=== PATIENT | male | born 1960 | race Caucasian/White ===

== ENCOUNTER → 2016-09-02 | Outpatient (CLI) | payer MEDICARE ==
[~2016-09-02] MED LIST: BENA25CA2 PO; DOCU10CA PO; PERC5TAB6 PO; TYLE325T5 PO; [UNRECOGNIZED DRUG - REMARK]
[2016-09-02 13:27] LABS: MEAN CORPUSCULAR HEMOGLOBIN 29.9 pg (27.0-33.0); MEAN CORPUSCULAR HGB CONC 31.9 g/dl (32.0-36.5); MEAN CORPUSCULAR VOLUME 93.8 fl (80.0-96.0); RED CELL DISTRIBUTION WIDTH 12.7 % (11.5-14.5); WHITE BLOOD COUNT 6.6 K/mm3 (4.0-10.0)
[2016-09-02 14:12] LABS: ANION GAP 7 MEQ/L (8-16); BLOOD UREA NITROGEN 26 MG/DL (7-18); CALCIUM LEVEL 9.4 MG/DL (8.5-10.1); CARBON DIOXIDE LEVEL 30 MEQ/L (21-32); CHLORIDE LEVEL 103 MEQ/L (98-107); GLOMERULAR FILTRATION RATE > 60.0 (>56); GLUCOSE, FASTING 102 MG/DL (70-105); POTASSIUM SERUM 5.1 MEQ/L (3.5-5.1); SODIUM LEVEL 140 MEQ/L (136-145)
== END ==
LOC: M SMT 08:56
PROVIDERS: ATTEND Urology
DX: Z85.528 Personal history of other malignant neoplasm of kidney (principal); Z90.5 Acquired absence of kidney

== ENCOUNTER → 2016-09-09 | Outpatient (CLI) | payer MEDICARE ==
[~2016-09-09] MED LIST changes: +ISOVUE-370 76% 100ML VIAL (Q9967) As Ordered ONE
--- NOTE | 2016-09-09 15:17 | REP ---
REASON: History of malignant renal neoplasm. COMPARISON: 02/18/2015 CONTRAST UTILIZED: 100 mL Isovue-370. The lung bases are unchanged. There are no pleural or pericardial effusions. The precontrast enhanced portion of the exam shows hepatic and splenic densities to be within normal limits. There are no choleliths or nephroliths. Surgical clips are seen in the left renal fossa from previous left nephrectomy. The contrast-enhanced portion of the examination shows two tiny enhancing areas, one in the lateral segment of the left lobe and the other in the anterior segment of the right lobe of the liver, but only on the angiographic phase of hepatic imaging and not present on the prior exam, however, injection timing was different with more arterial phase timing on today's exam. The delayed images of the liver show no evidence of an abnormality in those two regions. The small area of enhancement seen involving the lateral segment of the left lobe of the liver near the hepatic edge is again noted and is unchanged. The gallbladder, spleen, pancreas, adrenal glands, and right kidney are unchanged remaining within normal limits. The abdominal aorta and para-aortic regions are unchanged remaining within normal limits. Although not opacified with oral bowel preparatory contrast administration, the bowel loops and their mesenteries appear to be within normal limits. There is no evidence of an intra-abdominal mass or adenopathy. Bone window technique throughout the exam shows no significant change in appearance of the osseous structures. There are spinal degenerative changes and there are lumbar discogenic changes, all of which appear stable. IMPRESSION: 1. Postoperative changes, as described above. There is no evidence of recurrent disease. 2. Changes involving the liver, as described above. These two tiny areas of enhancement likely represent small vascular anomalies. There is no evidence of hepatic metastatic disease. 3. Other findings, as described above. Signed by Michel Rojas DO 09/09/2016 04:47 P
== END ==
LOC: M RAD 12:55
PROVIDERS: ATTEND Urology
DX: Z85.528 Personal history of other malignant neoplasm of kidney (principal); R93.2 Abnormal findings on diagnostic imaging of liver and biliary tract
CPT/HCPCS: 74170; Q9967

== ENCOUNTER → 2016-09-19 | Outpatient (REF) | payer MEDICARE ==
[~2016-09-19] MED LIST changes: -ISOVUE-370 76% 100ML VIAL (Q9967) As Ordered ONE
== END ==
LOC: M LAB REF 17:09
PROVIDERS: ATTEND Physician Assistant
DX: N41.0 Acute prostatitis (principal)

== ENCOUNTER → 2016-09-30 | Emergency (ER) | payer MEDICARE ==
[~2016-09-30] VITALS: Ht 180.3 cm; Wt 72.6 kg
[2016-09-30 08:53] VITALS: BP 129/86
== END | disposition left against medical advice (07) ==
LOC: M ED 09:53
DX: K08.89 Other specified disorders of teeth and supporting structures (principal); Z53.21 Procedure and treatment not carried out due to patient leaving prior to being seen by health care provider

== ENCOUNTER → 2017-11-23 | Outpatient (CLI) | payer MEDICARE ==
[2017-11-23 20:33] LABS: ANION GAP 7 MEQ/L (8-16); BLOOD UREA NITROGEN 34 MG/DL (7-18); CALCIUM LEVEL 9.3 MG/DL (8.5-10.1); CARBON DIOXIDE LEVEL 31 MEQ/L (21-32); CHLORIDE LEVEL 107 MEQ/L (98-107); CREATININE FOR GFR 1.22 MG/DL (0.70-1.30); GLOMERULAR FILTRATION RATE > 60.0 (>56); GLUCOSE, FASTING 82 MG/DL (70-100); SODIUM LEVEL 145 MEQ/L (136-145)
[2017-11-23 20:35] LABS: HEMATOCRIT 40.4 % (42.0-52.0); HEMOGLOBIN 13.3 g/dl (13.5-17.5); MEAN CORPUSCULAR HEMOGLOBIN 30.3 pg (27.0-33.0); MEAN CORPUSCULAR HGB CONC 32.9 g/dl (32.0-36.5); PLATELET COUNT, AUTOMATED 257 10^3/uL (150-450); POTASSIUM SERUM 5.8 MEQ/L (3.5-5.1); RED BLOOD COUNT 4.39 10^6/uL (4.30-6.10); RED CELL DISTRIBUTION WIDTH 13.2 % (11.5-14.5); WHITE BLOOD COUNT 9.2 10^3/uL (4.0-10.0)
== END ==
LOC: M WUC 15:53
DX: Z90.5 Acquired absence of kidney (principal); Z85.528 Personal history of other malignant neoplasm of kidney
CPT/HCPCS: 80048

== ENCOUNTER → 2017-11-29 | Outpatient (CLI) | payer MEDICARE ==
[~2017-11-29] MED LIST changes: -BENA25CA2 PO; -DOCU10CA PO; +ISOVUE-370 76% 100ML VIAL (Q9967) As Ordered; -PERC5TAB6 PO; -TYLE325T5 PO; -[UNRECOGNIZED DRUG - REMARK]
== END ==
LOC: M RAD 12:51
DX: Z85.528 Personal history of other malignant neoplasm of kidney (principal); Z90.5 Acquired absence of kidney
CPT/HCPCS: Q9967

== ENCOUNTER 2020-03-12 09:01 | Emergency (ER) | payer MEDICARE ==
[~2020-03-12] VITALS: Ht 180.3 cm; Wt 74.3 kg
[~2020-03-12 09:01] MED LIST changes: +BENA25CA2 PO; +DOCU10CA PO; -ISOVUE-370 76% 100ML VIAL (Q9967) As Ordered; +PERC5TAB12 PO; +TYLE325T5 PO; +[UNRECOGNIZED DRUG - REMARK]
[2020-03-12 09:02] VITALS: BP 112/77
[2020-03-12] MEDS ORDERED: DOXY100C37 PO (09:42)
== END 2020-03-12 09:47 | disposition home or self-care (01) ==
LOC: M ED 09:01
DX: L03.114 Cellulitis of left upper limb (principal); F17.200 Nicotine dependence, unspecified, uncomplicated

== ENCOUNTER 2020-05-11 02:22 | Emergency (ER) | payer MEDICARE ==
[~2020-05-11] VITALS: Ht 177.8 cm; Wt 67.6 kg
[~2020-05-11 02:22] MED LIST changes: +DOXY100C37 PO
[2020-05-11] MEDS ORDERED: NS 1,000 ML IV ONE ×2 (02:45→04:15)
[2020-05-11 02:46] LABS: BASO % 0.2 % (0.0-1.0); EOS % 0.1 % (0.0-3.0); HEMATOCRIT 38.9 % (42.0-52.0); HEMOGLOBIN 12.4 g/dl (13.5-17.5); LYMPH # 1.5 10^3/uL (1.5-5.0); LYMPH % 11.3 % (24.0-44.0); MEAN CORPUSCULAR HEMOGLOBIN 28.4 pg (27.0-33.0); MEAN CORPUSCULAR HGB CONC 31.9 g/dl (32.0-36.5); MEAN CORPUSCULAR VOLUME 89.2 fl (80.0-96.0); MONO # 1.2 10^3/uL (0.0-0.8); NEUTROPHILS # 10.5 10^3/uL (1.5-8.5); NEUTROPHILS % 78.9 % (36.0-66.0); PLATELET COUNT, AUTOMATED 217 10^3/uL (150-450); RED BLOOD COUNT 4.36 10^6/uL (4.30-6.10); WHITE BLOOD COUNT 13.4 10^3/uL (4.0-10.0)
[2020-05-11] MEDS ORDERED: LORazepam 2 MG/ML VIAL IV STA (02:57)
[2020-05-11] MEDS ORDERED: LORazepam 2 MG/ML VIAL As Ordered ONE (03:00)
[2020-05-11 03:13] LABS: BLOOD UREA NITROGEN 25 MG/DL (7-18); CALCIUM LEVEL 8.8 MG/DL (8.5-10.1); CARBON DIOXIDE LEVEL 25 MEQ/L (21-32); CHLORIDE LEVEL 100 MEQ/L (98-107); CK-MB VALUE MASS 16.3 NG/ML (<3.6); CPK CREATINE PHOSPHOKINASE 759 U/L (39-308); ETHYL ALCOHOL (ETHANOL) 0.003 % (0.000-0.010); GLOMERULAR FILTRATION RATE > 60.0 (>56); GLUCOSE, FASTING 97 MG/DL (70-100); MB/CK RELATIVE INDEX 2.15 (< OR =4); NT-PRO BNP 502 PG/ML (<125); POTASSIUM SERUM 4.1 MEQ/L (3.5-5.1); SODIUM LEVEL 134 MEQ/L (136-145); TROPONIN I < 0.02 NG/ML (< 0.10)
[2020-05-11 03:21] LABS: AMPHETAMINES LEVEL URINE POSITIVE (NEGATIVE); BARBITURATES URINE NEGATIVE (NEGATIVE); BENZODIAZEPINES URINE NEGATIVE (NEGATIVE); CANNABINOIDS URINE POSITIVE (NEGATIVE); COCAINE METABOLITE URINE POSITIVE (NEGATIVE); METHADONE URINE NEGATIVE (NEGATIVE); OPIATES URINE NEGATIVE (NEGATIVE); PHENCYCLIDINE URINE NEGATIVE (NEGATIVE)
--- NOTE | 2020-05-11 05:53 | ECGEPIP ---
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
--- NOTE | 2020-05-11 07:08 | REPVR ---
PROCEDURE INFORMATION: Exam: XR Chest, 1 View Exam date and time: 05/11/2020 3:00 AM Age: 60 years old Clinical indication: Chest pain; Type not specified TECHNIQUE: Imaging protocol: XR of the chest Views: 1 view. COMPARISON: CR Chest, 2 view PA, Lat 11/29/2017 1:04 PM FINDINGS: Lungs: No consolidation. Pleural space: No pleural effusion. No pneumothorax. Heart/Mediastinum: No cardiomegaly. Bones/joints: There are degenerative changes of the thoracic spine. IMPRESSION: There is no evidence of active pulmonary disease. Electronically signed by: Emanuel Cotton On 05/11/2020 07:08:53 AM
[2020-05-11 08:59] LABS: CK-MB VALUE MASS 11.2 NG/ML (<3.6); CPK CREATINE PHOSPHOKINASE 491 U/L (39-308); MB/CK RELATIVE INDEX 2.28 (< OR =4); TROPONIN I < 0.02 NG/ML (< 0.10)
[2020-05-11 11:01] VITALS: BP 122/62
--- NOTE | 2020-05-12 06:32 | ECGEPIP ---
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
== END 2020-05-11 12:11 | disposition home or self-care (01) ==
LOC: M ED 02:22
DX: R07.9 Chest pain, unspecified (principal); R00.0 Tachycardia, unspecified; R06.02 Shortness of breath; F19.10 Other psychoactive substance abuse, uncomplicated; Z85.528 Personal history of other malignant neoplasm of kidney
CPT/HCPCS: 71045; 80048; 80307; 82550; 82553; 83880; 84484; 85025; 93005; 93041; 94760; 96361; 96374; 99285; G0480; J2060; U0003

== ENCOUNTER 2020-07-02 11:57 | Emergency (ER) | payer MEDICARE ==
[~2020-07-02] VITALS: Ht 177.8 cm; Wt 69.1 kg
--- OUTSIDE RECORDS SUMMARY | 2020-07-02 12:03 | CCD ---
Author Author [facility] Organization [facility] Address Unknown Phone Unavailable Support Name Relationship Address Phone RYLAN PADILLA [place] [address] DELTA JOSEPH Next Of Kin [address] [place] [address] D Next Of Kin Unknown Unavailable ROEL RYLAN Next Of Kin , [place] SOM JOSEPH Next Of Kin [address] [facility] [address] [place] [id number] DISABLED Next Of Kin Unknown Unavailable SHUKRI JOSEPHY Next Of Kin [address] [place] [address] [place] Next Of Kin [address] [place], [place] [id number] Re-disclosure Warning The records that you are about to access may contain information from federally-assisted alcohol or drug abuse programs. If such information is present, then the following federally mandated warning applies: This information has been disclosed to you from records protected by federal confidentiality rules (42 CFR part 2). The federal rules prohibit you from making any further disclosure of this information unless further disclosure is expressly permitted by the written consent of the person to whom it pertains or as otherwise permitted by 42 CFR part 2. A general authorization for the release of medical or other information is NOT sufficient for this purpose. The Federal rules restrict any use of the information to criminally investigate or prosecute any alcohol or drug abuse patient.The records that you are about to access may contain highly sensitive health information, the redisclosure of which is protected by Article 27-F of the [facility] Public Health law. If you continue you may have access to information: Regarding HIV / AIDS; Provided by facilities licensed or operated by the [facility] Office of Mental Health; or Provided by the [facility] Office for People With Developmental Disabilities. If such information is present, then the following [facility] mandated warning applies: This information has been disclosed to you from confidential records which are protected by state law. State law prohibits you from making any further disclosure of this information without the specific written consent of the person to whom it pertains, or as otherwise permitted by law. Any unauthorized further disclosure in violation of state law may result in a fine or longterm sentence or both. A general authorization for the release of medical or other information is NOT sufficient authorization for further disc losure. Family History Family Member Name Family Member Gender Family Member Status Date o f Status Description Data Source(s) Unknown Male Problem MEDENT ([facility]) Medications Medication Brand Name Start Date Product Form Dose Route Admi nistrative Instructions Pharmacy Instructions Status Indications Reaction Description Data Source(s) 100 mg 03/12/2020 12:00:00 AM EDT capsule 20 TAKE ONE CAPSULE BY MOUTH EVERY 12 HOURS TAKE ONE CAPSULE BY MOUTH EVERY 12 HOURS SOLD: 03/12/2020 [facility] Insurance Providers Payer name Policy type / Coverage type Policy ID Covered republican ID Covered republican's relationship to mckeon Policy [place] Plan Information MEDICARE [id number] SP [id number] P34 MEDICARE C [id number] S [id number] P34 MEDICARE [id number] SP [id number] A MEDICARE [id number] SP [id number] A Medicare [facility] Medicare Primary [id number] Self [id number] [place] [id number] Self [id number] MEDICARE PART A-O/P [id number] 18 [id number] MC-PT A [id number] S [id number] A Medicare [facility] Medicare Primary Self MEDICARE [id number] SP [id number] A [id number] A Results ID Date Data Source [id number] 05/11/2020 12:03:00 PM EST [facility] Name Value Range Interpretation Code Description Data Miryam rce(s) Supporting Document(s) SARS coronavirus 2 RNA [facility] This lab was ordered by [facility] and reported by [facility]. Procedure
--- OUTSIDE RECORDS SUMMARY | 2020-07-02 12:31 | CCD ---
Author Author [facility] Organization [facility] Address Unknown Phone Unavailable Support Name Relationship Address Phone RYLAN PADILLA Next Of Kin [address] [place] [phone] DELTA JOSEPH Next Of Kin [address] [place] [address] D Next Of Kin Unknown Unavailable ROEL RYLAN Next Of Kin , [place] SOM JOSEPH Next Of Kin [address] [facility] [address] [place] [address] DISABLED Next Of Kin Unknown Unavailable KRISTIAN JOSEPH Next Of Kin [address] [place] [address] [place] JOSEPH Next Of Kin [address] [place] [address] Re-disclosure Warning The records that you are [...] is protected by Article 27-F of the [facility] Public Health law. If you continue you may have access to information: Regarding HIV / AIDS; Provided by facilities licensed or operated by the [facility] Office of Mental Health; or Provided by the [facility] Office for People With Developmental Disabilities. If such information is present, then the following [facility] mandated warning applies: This information has been [...] law may result in a fine or fdc sentence or both. A general authorization for the release of medical or other information is NOT sufficient authorization for further disc losure. Family History Family Member Name Family Member Gender Family Member Status Date o f Status Description Data Source(s) Unknown Male Problem [facility] ([facility]) Medications Medication Brand Name Start Date Product Form Dose Route Admi nistrative Instructions Pharmacy Instructions Status Indications Reaction Description Data Source(s) 100 mg 03/12/2020 12:00:00 AM EDT capsule 20 TAKE ONE CAPSULE BY MOUTH EVERY 12 HOURS TAKE ONE CAPSULE BY MOUTH EVERY 12 HOURS SOLD: 03/12/2020 [facility] Insurance Providers Payer name Policy type / Coverage type Policy ID Covered libertarian ID Covered libertarian's relationship to mckeon Policy [place] Plan Information MEDICARE [id number] SP [id number] P34 MEDICARE C [id number] S [id number] P34 MEDICARE [id number] SP [id number] A MEDICARE [id number] SP [id number] A Medicare [facility] Medicare Primary [id number] Self [id number] [place] Primary [id number] Self [id number] MEDICARE PART A-O/P [id number] 18 [id number] MC-PT A [id number] S [id number] A Medicare [facility] Medicare Primary Self MEDICARE [id number] SP [id number] A [id number] A Results ID Date Data Source [id number] 05/11/2020 12:03:00 PM EST [facility] Name Value Range Interpretation Code Description Data Miryam rce(s) Supporting Document(s) SARS coronavirus 2 RNA [facility] This lab was ordered by [facility] and reported by [facility]. Procedure
[2020-07-02 13:09] LABS: BASO # 0.1 10^3/uL (0.0-0.2); BASO % 1.2 % (0.0-1.0); EOS # 0.5 10^3/uL (0.0-0.5); EOS % 5.9 % (0.0-3.0); HEMATOCRIT 46.4 % (42.0-52.0); HEMOGLOBIN 14.6 g/dl (13.5-17.5); LYMPH # 2.1 10^3/uL (1.5-5.0); LYMPH % 24.2 % (24.0-44.0); MEAN CORPUSCULAR HEMOGLOBIN 29.5 pg (27.0-33.0); MEAN CORPUSCULAR HGB CONC 31.5 g/dl (32.0-36.5); MEAN CORPUSCULAR VOLUME 93.7 fl (80.0-96.0); MONO % 11.6 % (2.0-8.0); NEUTROPHILS # 4.8 10^3/uL (1.5-8.5); NEUTROPHILS % 56.7 % (36.0-66.0); PLATELET COUNT, AUTOMATED 313 10^3/uL (150-450); RED BLOOD COUNT 4.95 10^6/uL (4.30-6.10); WHITE BLOOD COUNT 8.5 10^3/uL (4.0-10.0)
--- NOTE | 2020-07-02 14:10 | REP ---
INDICATION: low back pain s/p fall. COMPARISON: Comparison CT study July 19, 2014.. TECHNIQUE: Helical scanning is acquired and 4 mm axial images re-formatted. Coronal and sagittal MPR images are generated and reviewed. FINDINGS: Lumbar vertebral body heights are preserved. No vertebral body fracture or collapse is seen. No spinous process or transverse process fracture is seen. Pedicles appear intact. There is no evidence of spondylolysis or spondylolisthesis. There is diffuse degenerative disc disease. Mild osteoarthritic facet changes are noted at L5-S1 bilaterally. There is a nondisplaced fracture involving the posterior most and of the right 12th rib at the costovertebral junction. This is visible at the upper margin of the scanned field. No sacral fracture is appreciated. Some vascular calcification is observed. IMPRESSION: Right posterior 12th rib fracture noted at the top of the scanned field of view. No lumbar spine fracture or collapse seen. Degenerative spondylosis changes essentially stable from July 19, 2014. <Electronically signed by Emmanuel Correa > 07/02/20 [id number]
[2020-07-02 14:49] VITALS: BP 109/76
[2020-07-02] MEDS ORDERED: LIDO5DIS41 TOP (14:54)
== END 2020-07-02 15:30 | disposition home or self-care (01) ==
LOC: M ED 11:57
DX: S30.0XXA Contusion of lower back and pelvis, initial encounter (principal); S39.012A Strain of muscle, fascia and tendon of lower back, initial encounter; S22.31XA Fracture of one rib, right side, initial encounter for closed fracture; W00.9XXA Unspecified fall due to ice and snow, initial encounter; Y92.9 Unspecified place or not applicable; Y93.H1 Activity, digging, shoveling and raking; Y99.9 Unspecified external cause status; M47.816 Spondylosis without myelopathy or radiculopathy, lumbar region; Z90.5 Acquired absence of kidney; Z85.528 Personal history of other malignant neoplasm of kidney; F17.200 Nicotine dependence, unspecified, uncomplicated; F14.10 Cocaine abuse, uncomplicated; F12.10 Cannabis abuse, uncomplicated

== ENCOUNTER 2021-01-24 14:52 | Emergency (ER) | payer MEDICARE ==
[~2021-01-24] VITALS: Ht 177.8 cm; Wt 69.8 kg
[~2021-01-24 14:52] MED LIST changes: -DOXY100C37 PO; +DOXY1CAP62 PO; +LIDO5DIS41 TOP
[2021-01-24] MEDS ORDERED: ACETAMINOPHEN 325 MG TAB PO ONE (16:30)
--- NOTE | 2021-01-24 16:39 | REP ---
INDICATION: pain and decreased ROM COMPARISON: None. TECHNIQUE: Three views right shoulder. FINDINGS: There is no evidence of acute fracture, dislocation, or intrinsic bone disease.There is mild narrowing and spurring at the acromioclavicular and glenohumeral joints. IMPRESSION: No fracture or dislocation. Mild degenerative changes. <Electronically signed by Mino Radford > 01/24/21 [id number]
[2021-01-24] MEDS ORDERED: KETOROLAC 30 MG/ML 1ML VIAL IM ONE (18:05)
[2021-01-24] MEDS ORDERED: ACET-897 PO (18:06)
[2021-01-24 18:15] VITALS: BP 147/88
== END 2021-01-24 18:17 | disposition home or self-care (01) ==
LOC: M ED 14:52
DX: M19.011 Primary osteoarthritis, right shoulder (principal); F17.200 Nicotine dependence, unspecified, uncomplicated; F12.10 Cannabis abuse, uncomplicated
CPT/HCPCS: 73030; 96372; 99284; J1885

== ENCOUNTER 2021-02-22 14:58 | Emergency (ER) | payer MEDICARE ==
[~2021-02-22] VITALS: Ht 180.3 cm; Wt 72.8 kg
[~2021-02-22 14:58] MED LIST changes: +ACET-897 PO
[2021-02-22 15:04] VITALS: BP 140/82
== END 2021-02-22 15:43 | disposition left against medical advice (07) ==
LOC: M ED 14:58
DX: Z53.21 Procedure and treatment not carried out due to patient leaving prior to being seen by health care provider (principal)

== ENCOUNTER 2021-11-05 12:54 | Emergency (ER) | payer MEDICARE ==
[~2021-11-05] VITALS: Ht 177.8 cm; Wt 69.0 kg
[~2021-11-05 12:54] MED LIST changes: +DOXY-443 PO; -DOXY1CAP62 PO
[2021-11-05 16:14] LABS: BASO % 0.5 % (0.0-1.0); EOS # 0.1 10^3/uL (0.0-0.5); EOS % 1.6 % (0.0-3.0); HEMOGLOBIN 14.5 g/dl (13.5-17.5); LYMPH # 1.5 10^3/uL (1.5-5.0); LYMPH % 17.9 % (24.0-44.0); MEAN CORPUSCULAR HEMOGLOBIN 30.3 pg (27.0-33.0); MEAN CORPUSCULAR VOLUME 92.1 fl (80.0-96.0); MONO # 0.7 10^3/uL (0.0-0.8); MONO % 8.4 % (2.0-8.0); NEUTROPHILS # 5.9 10^3/uL (1.5-8.5); NEUTROPHILS % 71.4 % (36.0-66.0); PLATELET COUNT, AUTOMATED 245 10^3/uL (150-450); RED BLOOD COUNT 4.78 10^6/uL (4.30-6.10); WHITE BLOOD COUNT 8.3 10^3/uL (4.0-10.0)
[2021-11-05 16:37] LABS: ALBUMIN 3.6 GM/DL (3.2-5.2); ALT/SGPT 360 U/L (12-78); BILIRUBIN,DIRECT 0.3 MG/DL (0.0-0.2); BILIRUBIN,TOTAL 0.6 MG/DL (0.2-1.0); BLOOD UREA NITROGEN 28 MG/DL (7-18); CALCIUM LEVEL 8.8 MG/DL (8.8-10.2); CARBON DIOXIDE LEVEL 26 MEQ/L (21-32); CHLORIDE LEVEL 104 MEQ/L (98-107); CREATININE FOR GFR 0.98 MG/DL (0.70-1.30); ETHYL ALCOHOL (ETHANOL) < 0.003 % (0.000-0.010); GLOMERULAR FILTRATION RATE > 60.0 (>49); GLUCOSE, FASTING 99 MG/DL (70-100); POTASSIUM SERUM 4.1 MEQ/L (3.5-5.1); SALICYLATE LEVEL 2.4 MG/DL (5.0-30.0); SODIUM LEVEL 137 MEQ/L (136-145); TOTAL PROTEIN 8.4 GM/DL (6.4-8.2)
[2021-11-05 16:38] LABS: CK-MB VALUE MASS 5.2 NG/ML (<3.6); MB/CK RELATIVE INDEX 3.44 (< OR =4)
[2021-11-05 19:49] LABS: CK-MB VALUE MASS 4.8 NG/ML (<3.6)
[2021-11-05 19:59] LABS: AMPHETAMINES LEVEL URINE POSITIVE (NEGATIVE); BARBITURATES URINE NEGATIVE (NEGATIVE); BENZODIAZEPINES URINE NEGATIVE (NEGATIVE); CANNABINOIDS URINE NEGATIVE (NEGATIVE); COCAINE METABOLITE URINE POSITIVE (NEGATIVE); METHADONE URINE NEGATIVE (NEGATIVE); OPIATES URINE NEGATIVE (NEGATIVE); PHENCYCLIDINE URINE NEGATIVE (NEGATIVE)
[2021-11-05 20:18] LABS: AMPHETAMINES LEVEL URINE POSITIVE (NEGATIVE); BARBITURATES URINE NEGATIVE (NEGATIVE); BENZODIAZEPINES URINE NEGATIVE (NEGATIVE); CANNABINOIDS URINE NEGATIVE (NEGATIVE); COCAINE METABOLITE URINE POSITIVE (NEGATIVE); METHADONE URINE NEGATIVE (NEGATIVE); OPIATES URINE NEGATIVE (NEGATIVE); PHENCYCLIDINE URINE NEGATIVE (NEGATIVE)
[2021-11-05 20:47] VITALS: BP 166/93
== END 2021-11-05 21:30 | disposition home or self-care (01) ==
LOC: EDUNIT# 12:54 → M ED 12:54 → EDBD 12:54 → M ED 21:30
DX: F19.10 Other psychoactive substance abuse, uncomplicated (principal); Z85.528 Personal history of other malignant neoplasm of kidney; M51.9 Unspecified thoracic, thoracolumbar and lumbosacral intervertebral disc disorder; M54.9 Dorsalgia, unspecified; R06.02 Shortness of breath; F17.200 Nicotine dependence, unspecified, uncomplicated; Z90.5 Acquired absence of kidney; R07.9 Chest pain, unspecified

== ENCOUNTER → 2023-06-26 | Outpatient (CLI) | payer MEDICARE ==
[~2023-06-26] MED LIST changes: +HYDR-3713 PO; +NAPR-837 PO
== END ==
LOC: M RAD 11:03
PROVIDERS: ATTEND Nurse Practitioner Adult Health
DX: Z01.811 Encounter for preprocedural respiratory examination (principal); Z01.810 Encounter for preprocedural cardiovascular examination

== ENCOUNTER → 2023-06-27 | Outpatient (CLI) | payer MEDICARE ==
[2023-06-27 13:58] LABS: BASO # 0.1 10^3/uL (0.0-0.2); BASO % 0.9 % (0.0-1.0); EOS # 0.5 10^3/uL (0.0-0.5); EOS % 5.9 % (0.0-3.0); HEMATOCRIT 47.8 % (42.0-52.0); HEMOGLOBIN 15.6 g/dl (13.5-17.5); LYMPH # 2.3 10^3/uL (1.5-5.0); LYMPH % 29.2 % (24.0-44.0); MEAN CORPUSCULAR HEMOGLOBIN 30.9 pg (27.0-33.0); MEAN CORPUSCULAR HGB CONC 32.6 g/dl (32.0-36.5); MEAN CORPUSCULAR VOLUME 94.7 fl (80.0-96.0); MONO # 0.8 10^3/uL (0.0-0.8); NEUTROPHILS # 4.2 10^3/uL (1.5-8.5); NEUTROPHILS % 53.7 % (36.0-66.0); PLATELET COUNT, AUTOMATED 225 10^3/uL (150-450); RED BLOOD COUNT 5.05 10^6/uL (4.30-6.10); WHITE BLOOD COUNT 7.8 10^3/uL (4.0-10.0)
[2023-06-27 14:15] LABS: ALBUMIN 3.8 G/DL (3.2-5.2); ALKALINE PHOSPHATASE 88 U/L (46-116); ALT/SGPT 301 U/L (7.0-40); AST/SGOT 164 U/L (<34); BILIRUBIN,TOTAL 0.4 MG/DL (0.3-1.2); BLOOD UREA NITROGEN 27 MG/DL (9-23); CALCIUM LEVEL 9.3 MG/DL (8.3-10.6); CARBON DIOXIDE LEVEL 31 MMOL/L (20-31); CHLORIDE LEVEL 104 MMOL/L (98-107); CREATININE FOR GFR 1.06 MG/DL (0.70-1.30); GLOMERULAR FILTRATION RATE > 60.0 (>49); GLUCOSE, FASTING 95 MG/DL (74-106); POTASSIUM SERUM 4.9 MMOL/L (3.5-5.1); SODIUM LEVEL 135 MMOL/L (136-145); TOTAL PROTEIN 7.6 G/DL (5.7-8.2)
[2023-06-27 14:20] LABS: INR 0.98; PROTHROMBIN TIME 12.7 SECONDS (12.5-14.5)
[2023-06-27 14:21] LABS: PARTIAL THROMBOPLASTIN TIME 33.4 SECONDS (24.8-34.2)
== END ==
LOC: M LAB 13:22
PROVIDERS: ATTEND Nurse Practitioner Adult Health
DX: Z01.812 Encounter for preprocedural laboratory examination (principal); Z85.528 Personal history of other malignant neoplasm of kidney

== ENCOUNTER → 2023-06-30 | Day surgery (SDC) | payer MEDICARE ==
[~2023-06-30] VITALS: Ht 177.8 cm; Wt 71.2 kg
[~2023-06-30] MED LIST changes: +LIDOCAINE 2% 100MG/5ML SDV (FOR ANES.) As Ordered ONE; +LIDOCAINE W/EPINEPHRINE 1% 20ML VIAL As Ordered ONE; +LR 1,000 ML IV SCH; +MIDAZOLAM INJ 2MG/2ML VIAL As Ordered ONE; +ROCURONIUM BROMIDE 50MG/5ML VIAL As Ordered ONE; +ceFAZolin SOD 2 GM in IV 1 EA IV ONE; +fentaNYL 100 MCG/2 ML INJECTION As Ordered ONE; +propofoL 200 MG/20 ML VIAL As Ordered ONE
[2023-06-30 10:30] VITALS: BP 126/81; TEMP 99; O2SAT 92
== END | disposition home or self-care (01) ==
LOC: M SDC 07:38
PROVIDERS: ATTEND Surgery
DX: K40.90 Unilateral inguinal hernia, without obstruction or gangrene, not specified as recurrent (principal); Z53.9 Procedure and treatment not carried out, unspecified reason
CPT/HCPCS: 49650; J3010

== ENCOUNTER → 2024-04-23 | Outpatient (CLI) | payer MEDICARE ==
[~2024-04-23] MED LIST changes: +DOXY-441 PO; -DOXY-443 PO; -LIDOCAINE 2% 100MG/5ML SDV (FOR ANES.) As Ordered ONE; -LIDOCAINE W/EPINEPHRINE 1% 20ML VIAL As Ordered ONE; -LR 1,000 ML IV SCH; -MIDAZOLAM INJ 2MG/2ML VIAL As Ordered ONE; -ROCURONIUM BROMIDE 50MG/5ML VIAL As Ordered ONE; -ceFAZolin SOD 2 GM in IV 1 EA IV ONE; -fentaNYL 100 MCG/2 ML INJECTION As Ordered ONE; -propofoL 200 MG/20 ML VIAL As Ordered ONE
[2024-04-23 12:33] LABS: BASO # 0.1 10^3/uL (0.0-0.2); BASO % 1.2 % (0.0-1.0); EOS # 0.3 10^3/uL (0.0-0.5); EOS % 4.7 % (0.0-3.0); HEMATOCRIT 45.8 % (42.0-52.0); HEMOGLOBIN 15.3 g/dl (13.5-17.5); LYMPH # 1.9 10^3/uL (1.5-5.0); LYMPH % 31.6 % (24.0-44.0); MEAN CORPUSCULAR HEMOGLOBIN 31.1 pg (27.0-33.0); MEAN CORPUSCULAR HGB CONC 33.4 g/dl (32.0-36.5); MEAN CORPUSCULAR VOLUME 93.1 fl (80.0-96.0); MONO # 0.6 10^3/uL (0.0-0.8); MONO % 9.8 % (2.0-8.0); NEUTROPHILS # 3.2 10^3/uL (1.5-8.5); NEUTROPHILS % 52.5 % (36.0-66.0); PLATELET COUNT, AUTOMATED 216 10^3/uL (150-450); RED BLOOD COUNT 4.92 10^6/uL (4.30-6.10)
[2024-04-23 12:53] LABS: INR 0.97; PARTIAL THROMBOPLASTIN TIME 31.6 SECONDS (24.8-34.2); PROTHROMBIN TIME 13.2 SECONDS (12.5-14.5)
[2024-04-23 13:02] LABS: ALBUMIN 3.6 G/DL (3.2-5.2); ALKALINE PHOSPHATASE 77 U/L (40-129); ALT/SGPT 211 U/L (7.0-40); AST/SGOT 135 U/L (<34); BILIRUBIN,TOTAL 0.7 MG/DL (0.3-1.2); BLOOD UREA NITROGEN 25 MG/DL (9-23); CALCIUM LEVEL 9.9 MG/DL (8.3-10.6); CARBON DIOXIDE LEVEL 29 MMOL/L (20-31); CHLORIDE LEVEL 103 MMOL/L (98-107); CHOLESTEROL LEVEL 108 MG/DL (<200); CHOLESTEROL RISK RATIO 2.99 (<5); CREATININE FOR GFR 0.93 MG/DL (0.70-1.30); GLOMERULAR FILTRATION RATE > 60.0 (>49); GLUCOSE, FASTING 107 MG/DL (74-106); HDL CHOLESTEROL 36.1 MG/DL (>40); LDL CHOLESTEROL 64.1 MG/DL (<100); NON-HDL-C 71.9 MG/DL; POTASSIUM SERUM 4.9 MMOL/L (3.5-5.1); SODIUM LEVEL 138 MMOL/L (136-145); TOTAL PROTEIN 7.9 G/DL (5.7-8.2); TRIGLYCERIDES LEVEL 39 MG/DL (<150)
[2024-04-23 13:03] LABS: FREE T4 1.23 NG/DL (0.89-1.76)
[2024-04-23 13:04] LABS: THYROID STIMULATING HORMONE 1.199 uIU/ML (0.55-4.78)
[2024-04-23 13:19] LABS: HEMOGLOBIN A1c 5.8 % (4.0-6.0)
[2024-04-25 15:26] LABS: PSA FREE 0.3 ng/mL; PSA TOTAL 1.2 ng/mL (< OR = 4.0)
== END ==
LOC: M RAD 11:15
DX: Z01.811 Encounter for preprocedural respiratory examination (principal); Z01.810 Encounter for preprocedural cardiovascular examination; Z01.812 Encounter for preprocedural laboratory examination; Z79.01 Long term (current) use of anticoagulants; E78.00 Pure hypercholesterolemia, unspecified

== ENCOUNTER 2024-05-03 06:17 | Day surgery (SDC) | payer MEDICARE ==
[~2024-05-03] VITALS: Ht 177.8 cm; Wt 72.1 kg
[~2024-05-03 06:17] MED LIST changes: +ALBU8.5H INH
[2024-05-03] MEDS ORDERED: ACETAMINOPHEN 1000MG/100ML IV BAG As Ordered ONE (06:34)
[2024-05-03] MEDS ORDERED: NS (Normal Saline) 0.9% 1,000 ML IV SCH ×2 (06:40→08:50)
[2024-05-03] MEDS ORDERED: MIDAZOLAM INJ 2MG/2ML VIAL As Ordered ONE (06:46)
[2024-05-03] MEDS ORDERED: LIDOCAINE 2% 100MG/5ML SDV (FOR ANES.) As Ordered ONE (06:46)
[2024-05-03] MEDS ORDERED: propofoL 200 MG/20 ML VIAL As Ordered ONE (06:46)
[2024-05-03] MEDS ORDERED: SUGAMMADEX SODIUM 500 MG/5 ML VIAL (BRIDION) As Ordered ONE (06:46)
[2024-05-03] MEDS ORDERED: ROCURONIUM BROMIDE 50MG/5ML VIAL As Ordered ONE (06:46)
[2024-05-03] MEDS ORDERED: fentaNYL 100 MCG/2 ML INJECTION As Ordered ONE (06:47)
[2024-05-03] MEDS: ceFAZolin SOD 2 GM in IV 1 EA IV ONE (07:42)
[2024-05-03] MEDS ORDERED: ONDANSETRON 4MG 2ML VIAL As Ordered ONE (07:46)
[2024-05-03] MEDS ORDERED: GLYCOPYRROLATE INJ 0.2 MG/ML 2 ML VIAL As Ordered ONE (08:02)
[2024-05-03] MEDS ORDERED: KETOROLAC 60MG 2ML VIAL As Ordered ONE (08:06)
[2024-05-03] MEDS ORDERED: PHENYLephrine 500MCG 5ML (100MCG/ML) SYRINGE As Ordered ONE (08:21)
[2024-05-03] MEDS ORDERED: fentaNYL 100 MCG/2 ML INJECTION IV PRN (08:50)
[2024-05-03] MEDS: HYDROMORPHONE HCL 0.5 MG/ 0.5 ML SYRINGE IV PRN (09:14)
[2024-05-03] MEDS: oxyCODONE 5MG TAB PO PRN (09:14)
[2024-05-03] MEDS: ONDANSETRON 4MG 2ML VIAL IV PRN (09:15)
[2024-05-03 10:40] VITALS: BP 110/80; TEMP 98; O2SAT 95
[2024-05-03] MEDS ORDERED: NORCO, ANEXSIA 5/325MG TABLET (HYDROcodone/ACETAMINOPHEN) PO PRN (11:00)
== END 2024-05-03 11:07 | disposition home or self-care (01) ==
LOC: M SDC 06:17
PROVIDERS: ATTEND Surgery
DX: K40.90 Unilateral inguinal hernia, without obstruction or gangrene, not specified as recurrent (principal); J44.9 Chronic obstructive pulmonary disease, unspecified; Z79.899 Other long term (current) drug therapy; Z85.528 Personal history of other malignant neoplasm of kidney; Z90.5 Acquired absence of kidney; Z72.0 Tobacco use
CPT/HCPCS: 49650; C1781; J0131; J0665; J0690; J1100; J1171; J1596; J1885; J2371; J2405; J3010

== ENCOUNTER 2025-01-06 12:41 | Emergency (ER) | payer MEDICARE ==
[~2025-01-06] VITALS: Ht 177.8 cm; Wt 69.9 kg
[~2025-01-06 12:41] MED LIST changes: +LIDO1ADH93 TOP; -LIDO5DIS41 TOP
[2025-01-06 12:45] VITALS: BP 102/69; TEMP 97.6; O2SAT 95
== END 2025-01-06 14:00 | disposition left against medical advice (07) ==
LOC: M ED 12:41
DX: S09.90XA Unspecified injury of head, initial encounter (principal); Y04.0XXA Assault by unarmed brawl or fight, initial encounter; J44.9 Chronic obstructive pulmonary disease, unspecified; M54.50 Low back pain, unspecified; Y92.9 Unspecified place or not applicable; Y93.9 Activity, unspecified; Y99.9 Unspecified external cause status; Z79.52 Long term (current) use of systemic steroids; Z53.9 Procedure and treatment not carried out, unspecified reason